=== PATIENT | male | born 1990 | race African-American/Black ===

== ENCOUNTER 2017-11-16 10:17 | Emergency (ER) | payer OTHER ==
[~2017-11-16] VITALS: Ht 160 cm; Wt 68.5 kg
[2017-11-16 10:20] VITALS: TEMP 99.1
[2017-11-16 10:47] LABS: PLATELET COUNT 352 K/uL (142-355)
[2017-11-16 11:40] VITALS: BP 132/74
== END 2017-11-16 11:41 | disposition home or self-care (01) ==
LOC: ED 10:17
DX: L03.012 Cellulitis of left finger (principal)
CPT/HCPCS: 36415; 81000; 85027; 99283; J0696